=== PATIENT | male | born 1950 | race Caucasian/White ===

== ENCOUNTER → 2016-08-30 | Outpatient (CLI) | payer BC ==
[~2016-08-30] MED LIST: ATEN50TA8 PO; IBUP-1050 PO; OXYC-57 PO
--- NOTE | 2016-08-30 10:01 | DIAGNOSTIC IMAGING REPORT ---
RIGHT SHOULDER 3 VIEWS HISTORY: RIGHT SHOULDER PAIN Right COMPARISON: Right shoulder 08/03/2009. FINDINGS: No fractures within the right shoulder. The right clavicle is intact. Severe osteoarthritis within the glenohumeral joint with [id number] articulation, subchondral sclerosis, and a large osteophyte. This has progressed. A 1 cm well-corticated ossific density superior to the glenoid joint may be due to chronic rotator cuff injury or an intra-articular loose body. There is posterior subluxation of the humeral head in relation to the glenoid of approximately 1 cm. IMPRESSION: 1. No fractures within the right shoulder. 2. Progressive severe osteoarthritis of the glenohumeral joint. 3. Posterior subluxation of the humeral head in relation to the glenoid of approximately 1 cm. This is new from the prior study. Electronically signed by: Jono Burnett M.D. 08/30/2016 9:59 AM Dictated Date/Time: 08/30/2016 9:51 AM
== END | disposition home or self-care (01) ==
LOC: C.RDSM 09:12
PROVIDERS: ATTEND Internal Medicine
DX: M19.011 Primary osteoarthritis, right shoulder (principal); S43.021A Posterior subluxation of right humerus, initial encounter; X58.XXXA Exposure to other specified factors, initial encounter

== ENCOUNTER → 2016-10-25 | Day surgery (SDC) | payer BC ==
[2016-10-06 11:48] VITALS: BMI 32.0
--- NOTE | 2016-10-06 12:21 | PAT Medication Instructions ---
Service Date October 06, 2016. Current Home Medication List Atenolol (Tenormin), 50 MG PO QAM Ibuprofen (Advil), 600 MG PO PRN Medication Instructions For Your Scheduled Surgery Ibuprofen (Advil), 600 MG PO PRN (patient can check with surgeon for instructions) - Take the following medications the morning of surgery with a sip of water: Atenolol (Tenormin), 50 MG PO QAM Tylenol (if needed) - Take the following medications as scheduled the night before surgery: Tylenol (if needed) If you have any questions please call us at [phone] or [phone] ( Sarahi) or [phone]
[2016-10-06 13:44] LABS: BASO % 0.3 %; BASO ABS # 0.03 K/uL (0-0.2); COMPLETE YES; EOS % 0.8 %; HEMATOCRIT 41.9 % (42-52); IG% 0.2 %; LYMPH % 25.7 %; LYMPH ABS # 2.61 K/uL (1.2-3.4); MEAN CELL VOLUME 85.7 fL (80-100); MEAN CORPUSCULAR HEMOGLOBIN 29.4 pg (25-34); MEAN CORPUSCULAR HGB CONC 34.4 g/dl (32-36); MEAN PLATELET VOLUME 9.7 fL (7.4-10.4); MONO % 7.3 %; NEUT % 65.7 %; PLATELET COUNT 255 K/uL (130-400); RED BLOOD COUNT 4.89 M/uL (4.7-6.1); WHITE BLOOD COUNT 10.14 K/uL (4.8-10.8)
[2016-10-06 13:46] LABS: URINE APPEARANCE CLEAR (CLEAR); URINE BILIRUBIN NEG (NEG); URINE COLOR YELLOW; URINE NITRITE NEG (NEG); URINE SPECIFIC GRAVITY 1.009 (1.000-1.030); UROBILINOGEN NEG (NEG); ZZUR CULT IF INDIC CLEAN CATCH NO
[2016-10-06 13:48] LABS: MANUAL MICROSCOPIC REQUIRED? NO; REVIEW REQ? NO
[2016-10-06 13:52] LABS: PARTIAL THROMBOPLASTIN RATIO 1.1; PROTHROMBIN TIME (PATIENT) 10.3 SECONDS (9.0-12.0)
[2016-10-06 14:05] LABS: BUN/CREATININE RATIO 19.2 (10-20); CALCIUM 8.9 mg/dl (8.5-10.1); CREATININE 0.88 mg/dl (0.60-1.40); POTASSIUM 3.8 mmol/L (3.5-5.1)
--- NOTE | 2016-10-14 05:50 | HISTORY & PHYSICAL EXAMINATION ---
DATE OF ADMISSION: 11/01/2016 CHIEF COMPLAINT: Right shoulder pain. HISTORY OF PRESENT ILLNESS: This 66-year-old white male, presents to the office with complaints of right shoulder pain that has been ongoing for over 10 years. Pain has become worse over the last 6 months. He is now having difficulty with any sort of lifting. He has lost motion. He is no longer able to put his arms over his head. No recent trauma. Pain is associated with motion and is affecting his ADLs. He has tried conservative care including activity modification, physical therapy and joint injections without lasting relief. Right hand dominant. He elects to proceed with a right total shoulder arthroplasty in hopes of alleviating his pain. PAST MEDICAL HISTORY: Significant for hypertension as well as degenerative joint disease and obesity. PREVIOUS SURGERIES: Tonsillectomy in 1964. CURRENT MEDICATIONS: Atenolol 50 mg daily. ALLERGIES: NKDA. FAMILY HISTORY: Significant for prostate cancer and glaucoma. SOCIAL HISTORY: The patient is employed at the [employer]. No tobacco use, no ETOH use. . REVIEW OF SYSTEMS: Significant for the above stated conditions, otherwise unremarkable. PHYSICAL EXAMINATION: GENERAL: Well-developed and well-nourished middle aged white male, in no acute distress. Sitting on a chair, alert and oriented. SKIN: Warm and dry with good turgor. No rashes or lesions. No ecchymosis or erythema. HEENT: Normocephalic and atraumatic. Eyes: PERRLA, EOMI. Nares patent bilaterally without turbinate enlargement. Oropharynx without erythema or exudates. No lesions noted. Uvula midline. Oral mucosa moist. Fair dentition. Fillings are noted. HEART: RRR. No MGR. LUNGS: Clear to auscultation bilaterally. No crackles, rhonchi or wheezing. Good air movement. ABDOMEN: Obese. Bowel sounds present x4, soft and nontender. No organomegaly. No masses. MUSCULOSKELETAL: Right shoulder evaluation reveals no obvious asymmetry or deformity. There is crepitus palpable with motion. Forward flexion to around 120 degrees, abduction to around 90 degrees, behind the back reach to belt line. External rotation only about 15 degrees. He has focal discomfort with palpation over the glenohumeral joint. The pain extends into the pectoral muscles as well. Full elbow motion. NEUROLOGIC: Cranial nerves II through XII are intact. Gross sensation is intact across the right arm via soft touch. Peripheral pulses are 2+. DATA: Radiographic imaging previously obtained shows end-stage DJD of the right glenohumeral joint. He has a large goats schaffer deformity. Periarticular osteophytes and loss of joint space are noted. IMPRESSION: Right shoulder advanced degenerative joint disease. PLAN: Informed written consent was obtained to proceed with a right total shoulder arthroplasty. Postoperative prescription for Percocet will be provided at discharge from the hospital. I anticipate one night 23-hour observation stay. Postoperative physical therapy appointment was made. Preoperative lab work and EKG have been ordered. Medical clearance was requested from his PCP. ANA
[~2016-10-25] VITALS: Ht 177.8 cm; Wt 102.3 kg
[~2016-10-25] MED LIST changes: +BUPIVACAINE/EPINEPHRINE 0.25% 1:200,000 30 ML VIAL ONE; +CEFAZOLIN 2000 MG/60 ML D5W 60 ML IV SCH; +DEXAMETHASONE SOD INJ 4 MG/ML VIAL ONE; +FENTANYL CITRATE INJ 50 MCG/1 ML 2 ML VIAL ONE; +GLYCOPYRROLATE INJ 0.2 MG/ML VIAL ONE; +LACTATED RINGER'S 1000ML 1,000 ML IV SCH; +LACTATED RINGER'S 1000ML IV SCH; +LIDOCAINE HCL 2% 2 ML VIAL (20MG/ML) ONE; +MIDAZOLAM HCL 1 MG/ML 2ML VIAL ONE; +NEOSTIGMINE METHYLSULFATE 5 MG/5 ML SYR ONE; +PROPOFOL IV EMULSION 10 MG/ML 20 ML VIAL IV ONE; +ROCURONIUM BROMIDE 10 MG/ML 5 ML VIAL ONE; +TRANEXAMIC ACID INJ 1,000 MG in SODIUM CHLORIDE 0.9% 100ML 100 ML IV SCH
[2016-10-25 05:38] VITALS: BP 157/96; PULSE 58; TEMP 36.7; O2SAT 98; Ht 177.8 cm; Wt 102.3 kg
--- NOTE | 2016-10-25 06:28 | History & Physical Bridge Note ---
H&P Re-Evaluation Bridge Note: I have examined the patient, reviewed the History & Physical and in the interval since the performance of the History & Physical I have noted the following changes of clinical significance: denies any cardiac symptoms but has new ekg strip change.will need 12 lead ekg now prior to clearing.anesthesia evaluating as well..Ekg abnormal will need workup and case will be cancelled.
--- NOTE | 2016-10-30 13:03 | EDITING REQUIRED CODING QUERY ---
EKG changes CANCELLED PROCEDURE Please provide reason for the procedure being cancelled below: REASON PROCEDURE WAS CANCELLED: EKG changes Thank you for your assistance, Nancy Blandon - Drafter [employer]
== END | disposition home or self-care (01) ==
LOC: C.ACU 05:11
PROVIDERS: ATTEND Physical Medicine & Rehabilitation Sports Medicine
DX: M19.011 Primary osteoarthritis, right shoulder (principal); R94.31 Abnormal electrocardiogram [ECG] [EKG]; Z53.09 Procedure and treatment not carried out because of other contraindication; I10 Essential (primary) hypertension; E66.9 Obesity, unspecified; Z80.42 Family history of malignant neoplasm of prostate; Z83.511 Family history of glaucoma

== ENCOUNTER 2016-11-29 06:38 | Observation (INO) | payer BC ==
[2016-11-28 12:07] VITALS: BMI 32.0
--- NOTE | 2016-11-28 12:36 | History and Physical ---
History & Physical Date & Time of Service: Nov 28, 2016 at 12:28 Chief Complaint: Right Shoulder Degenerative Joint Disease Primary Care Physician: Basil Horton M.D. History of Present Illness Source: patient This 66-year-old white male presents with complaints of right shoulder pain that has been ongoing for over 10 years. Pain is become worse over the last 6- 9 months. He is now having difficulty with any sort of lifting. He has lost motion. He is no longer able to put his arms over his head. No recent trauma. Pain is associated with motion and is affecting his ADLs. He has tried conservative care including activity modification, physical therapy, and joint injections without lasting relief. Right-hand dominant. He elected to proceed with a right total shoulder arthroplasty in hopes of alleviating his pain. Past Medical/Surgical History Past medical history: Significant for hypertension, obesity, and degenerative joint disease. Previous surgeries: Tonsillectomy 1964. Family History Significant for prostate cancer and glaucoma Social History Smoking Status: Former Smoker Smokeless Tobacco Use: No Alcohol Use: none Drug Use: none Marital Status: Housing status: lives with family Occupational Status: employed (at the [employer] at [employer]) Multi-Drug Resistant Organisms History of MDRO: No Allergies Coded Allergies: No Known Allergies (Unverified , 11/28/16) Home Medications Scheduled Atenolol (Tenormin), 50 MG PO QAM Ibuprofen (Advil), 600 MG PO PRN Physical Exam General Appearance: WD/WN, no apparent distress (sitting in a chair) Head: normocephalic, atraumatic Eyes: PERRL, EOMI, sclerae normal ENT: hearing grossly normal, pharynx normal (fair dentition, fillings are noted. Uvula midline) Neck: supple, no adenopathy Respiratory/Chest: chest non-tender, lungs clear, normal breath sounds (no crackles, rhonchi, or wheezing. Good air movement), no respiratory distress Cardiovascular: regular rate, rhythm, no edema, no gallop, no murmur (no rubs) , normal peripheral pulses Abdomen/GI: normal bowel sounds, non tender, soft Extremities/Musculoskelatal: normal inspection, + pertinent finding (he has crepitus palpable with motion. For flexion to around 120, abduction to around 90, and lack reached a belt line. External rotation of only 15 with his elbow at the side. There is focal pain with palpation over the glenohumeral joint. Pain extends into the pectoral muscles well. Elbow exam is benign.) Neurologic/Psych: engine boss II-XII nml as tested, alert, oriented x 3 Skin: normal color, warm/dry, no rash (no ecchymosis, no erythema.) Diagnostics Diagnostic Radiology Radiographic imaging previously obtained shows end-stage DJD of the right glenohumeral joint. He has a large goat's schaffer deformity. Periarticular osteophytes and loss of joint space are noted. Impression Assessment and Plan Impression: Right shoulder advanced degenerative joint disease. Plan: Informed written consent was obtained to proceed with a right total shoulder arthroplasty. Postoperative prescription for Percocet will be provided at discharge from the hospital. I anticipate a 1 night stay. Preoperative lab work and EKG have been ordered. Medical clearance has been obtained from his PCP. Advanced Directives Existing Living Will: No Existing Power of Pari Mutuel Ticket Cashier: No
[~2016-11-29] VITALS: Ht 177.8 cm; Wt 102.3 kg
[2016-11-29] VITALS (9 sets, daily range): BP systolic 102–151; BP diastolic 52–84; PULSE 54–70; TEMP 36.4–36.9; O2SAT 93–98; Ht 177.8 cm; Wt 102.3 kg
[~2016-11-29 06:38] MED LIST changes: -BUPIVACAINE/EPINEPHRINE 0.25% 1:200,000 30 ML VIAL ONE; -DEXAMETHASONE SOD INJ 4 MG/ML VIAL ONE; -FENTANYL CITRATE INJ 50 MCG/1 ML 2 ML VIAL ONE; -GLYCOPYRROLATE INJ 0.2 MG/ML VIAL ONE; -LACTATED RINGER'S 1000ML 1,000 ML IV SCH; +LACTATED RINGER'S 1000ML IV ONE; -LIDOCAINE HCL 2% 2 ML VIAL (20MG/ML) ONE; -MIDAZOLAM HCL 1 MG/ML 2ML VIAL ONE; -NEOSTIGMINE METHYLSULFATE 5 MG/5 ML SYR ONE; -OXYC-57 PO; -PROPOFOL IV EMULSION 10 MG/ML 20 ML VIAL IV ONE; -ROCURONIUM BROMIDE 10 MG/ML 5 ML VIAL ONE; +ROPIVACAINE 0.5% 5 MG/ML 30 ML VIAL ONE
--- NOTE | 2016-11-29 06:42 | History & Physical Bridge Note ---
H&P Re-Evaluation Bridge Note: I have examined the patient, reviewed the History & Physical and in the interval since the performance of the History & Physical I have noted the following changes of clinical significance: addressed consent and questions..No changes noted
[2016-11-29] MEDS ORDERED: MIDAZOLAM HCL 1 MG/ML 2ML VIAL ONE ×2 (07:53)
[2016-11-29] MEDS ORDERED: FENTANYL CITRATE INJ 50 MCG/1 ML 2 ML VIAL ONE ×2 (07:53→10:44)
[2016-11-29] MEDS ORDERED: BACITRACIN 50000 UNIT VIAL ONE (08:17)
[2016-11-29] MEDS ORDERED: THROMBIN FOR SOLN 20000 UNIT KIT ONE (08:17)
[2016-11-29] MEDS ORDERED: ROCURONIUM BROMIDE 10 MG/ML 5 ML VIAL ONE (09:06)
[2016-11-29] MEDS ORDERED: LIDOCAINE HCL 2% 2 ML VIAL (20MG/ML) ONE (09:06)
[2016-11-29] MEDS ORDERED: DEXAMETHASONE SOD INJ 4 MG/ML VIAL ONE (09:06)
[2016-11-29] MEDS ORDERED: PROPOFOL IV EMULSION 10 MG/ML 20 ML VIAL IV ONE (09:06)
[2016-11-29] MEDS ORDERED: ONDANSETRON INJ 2 MG/ML 2 ML VIAL ONE (09:06)
[2016-11-29] MEDS ORDERED: ATROPINE SULFATE 0.1 MG/ML 5ML SYR IV PRN (09:15)
[2016-11-29] MEDS ORDERED: HYDROmorphone INJ 2 MG/ML SYR/VIAL IV PRN (09:15)
[2016-11-29] MEDS ORDERED: ONDANSETRON INJ 2 MG/ML 2 ML VIAL IV PRN ×2 (09:15→11:00)
[2016-11-29] MEDS ORDERED: KETOROLAC TROMETHAMINE 30 MG/ML VIAL IV. PRN (09:15)
--- NOTE | 2016-11-29 10:49 | [facility] Post Operative Brief Note ---
Immediate Operative Summary Operative Date Nov 29, 2016. Pre-Operative Diagnosis Right Shoulder Degenerative Joint Disease Post-Operative Diagnosis Right Shoulder Degenerative Joint Disease Procedure(s) Performed Right Total Shoulder Arthroplasty--Cemented Surgeon Dr. Asher Cargo Trimmer Surgeon(s) NORBERT Villalobos Estimated Blood Loss 120 ml Findings severe djd/intact rotator cuff Fluids (cc crystalloids) 1400cc Specimens A. Portion of Right Humeral Head Drains none Anesthesia GET/block Complication(s) None Disposition Recovery Room / PACU
[2016-11-29] MEDS ORDERED: MAGNESIUM HYDROXIDE SUSP 30 ML UDC PO PRN (11:00)
[2016-11-29] MEDS ORDERED: MoRPHine SULFATE 2 MG/ML CARP IV PRN (11:00)
[2016-11-29] MEDS ORDERED: ACETAMINOPHEN 325 MG TAB PO PRN (11:00)
[2016-11-29] MEDS ORDERED: METOCLOPRAMIDE HCL INJ 5 MG/ML 2 ML VIAL IV PRN (11:00)
[2016-11-29] MEDS ORDERED: ALUMINUM/MAGNESIUM SUSP 30 ML UDC PO PRN (11:00)
--- NOTE | 2016-11-29 11:08 | [facility] Operative Report ---
Operative Report Date of Service Nov 29, 2016. Operative Report Preoperative diagnosis severe osteoarthritis/arthrofibrosis right shoulder Postoperative diagnosis same Surgeon: Lb Asst.: Elva, no resident or fellow available Perioperative situation: Medically cleared male with intractable shoulder pain with physical exam x-ray revealing end-stage osteoarthritis with intact rotator cuff. Cardiac disease issue cleared. Options discussed in detail including risks and benefits axillary nerve palsy, fracture, instability, infection, DVT. Operation: After the patient was properly identified, b consent verified ,2 g of Ancef confirmed as being given the patient was placed in the beachchair position and the right upper extremity prepped and draped in usual routine fashion. Care was taken to protect all prominent sites. A deltopectoral incision was then made. The cephalic vein was preserved and retracted with the deltoid. The clavipectoral fascia was incised. Deep retractors were placed. The subscapularis was then subperiosteally dissected off the lesser tuberosity. Capsule was then excised. The head was then dislocated. Care was taken to the dissector on the inferior neck to protect the axillary nerve which was palpated but not explored. Humeral head was then resected. Rotator cuff was intact. The glenoid was then exposed and remaining soft tissue removed. Central pin was then placed. Reaming was carried out. All osteophytes removed. The lesly hole was then made for a keeled stem. Once this was completed it was irrigated and thrombin placed irrigated and then a permanent keeled stem cemented into position. After 14 minutes the area was explored and was no excess cement. The wound was irrigated. Humerus was then delivered in the wound care taken to protect all soft tissue structures and canal reamed up to a 12 broach aligned at 30 of retroversion and then the 12 mm broach impacted. Trial reduction was carried out with an 18 and a 21 head and a 21 offer more stability posteriorly. The remaining trial implants were then removed permanent head and stem seated sutures placed through the less tuberosity around the stem for the rotator cuff. Shoulder was then reduced it was nice and stable. The rotator cuff and subscapularis repair was then completed with #5 FiberWire and #1 Vicryl with an excellent repair. Shoulder could be placed 30 into forward flexion abduction and external rotation was from the belly to about 10. There was no undue tension on the repair. The wound was then irrigated. Was then closed using #1 Vicryl for the deltopectoral fascia 2-0 plain for the subcutaneous tissue and stainless still clips for skin. The wound was then appropriately dressed. Patient was then transferred to recovery in satisfactory missionary tolerated the procedure well. Summary of implants: Size 52 keeled glenoid cemented with Palacos G cement one batch 12 global advantage stem porous-coated noncemented 5221 head. Estimated blood loss was 125 mL crystalloid 1400 mL. Dictated not read. Carbon copy to Dr. Asher. I attest to the content of the Intraoperative Record and any orders documented therein. Any exceptions are noted below.
--- NOTE | 2016-11-29 11:25 | DIAGNOSTIC IMAGING REPORT ---
RIGHT SHOULDER 1 VIEW CLINICAL HISTORY: s/p Right shoulder TSA Right shoulder arthroplasty COMPARISON: 05/07/2006 DISCUSSION: Total right shoulder arthroplasty. Good contact between metallic prosthetic and underlying bone. Postoperative soft tissue changes are present. IMPRESSION: Total right shoulder arthroplasty good position Electronically signed by: Tyrese Padilla M.D. 11/29/2016 11:24 AM Dictated Date/Time: 11/29/2016 11:23 AM
[2016-11-29] MEDS ORDERED: IV FLUIDS COMPLETED PRN (11:30)
[2016-11-29] MEDS ORDERED: MoRPHine SULFATE 4 MG/ML 1 ML CARP\\VIAL IV PRN (12:45)
--- NOTE | 2016-11-29 12:58 | Anesthesiology Progress Note ---
Anesthesia Post Op Note Date & Time Nov 29, 2016 at 12:57 Vital Signs Pain Intensity: 3.0 Vital Signs Past 12 Hours Date Time Temp Pulse Resp B/P (MAP) Pulse Ox O2 Delivery O2 Flow Rate FiO2 11/29/16 12:46 56 18 124/74 (91) 11/29/16 12:13 36.4 56 18 122/69 (86) 95 Nasal Cannula 2.0 11/29/16 11:50 93 Nasal Cannula 2.0 11/29/16 11:45 36.6 54 18 121/62 (81) 93 Nasal Cannula 2.0 11/29/16 11:45 Nasal Cannula 2.0 11/29/16 11:30 56 18 133/74 96 Nasal Cannula 2 11/29/16 11:20 36.1 56 15 141/80 96 Nasal Cannula 2 11/29/16 11:10 58 18 145/85 96 Oxymask 6 11/29/16 11:00 58 13 157/88 99 Oxymask 8 11/29/16 10:52 36.1 64 16 169/102 96 Oxymask 10 11/29/16 07:00 36.9 58 18 151/84 98 Room Air Notes Mental Status: alert / awake / arousable, participated in evaluation Pt Amnestic to Procedure: Yes Nausea / Vomiting: adequately controlled Pain: adequately controlled Airway Patency, RR, SpO2: stable & adequate BP & HR: stable & adequate Hydration State: stable & adequate Anesthetic Complications: no major complications apparent
[2016-11-29] MEDS ORDERED: D5W AND 1/2NSS + 20MEQ KCL 1,000 ML IV SCH (13:00)
--- NOTE | 2016-11-29 13:57 | Orthopedic Progress Note ---
Orthopedic Progress Note Date of Service Nov 29, 2016. Subjective Post OP Day: Reports: feeling well, Denies: complaints, chest pain, SOB, nausea / vomiting, light headedness, calf pain, pain controlled w PO medications, using INSPECTOR TOOL Objective calves soft nontender, N/V intact (limited by block) Date Time Temp Pulse Resp B/P (MAP) Pulse Ox O2 Delivery O2 Flow Rate FiO2 11/29/16 12:46 56 18 124/74 (91) 11/29/16 12:13 36.4 56 18 122/69 (86) 95 Nasal Cannula 2.0 11/29/16 11:50 93 Nasal Cannula 2.0 11/29/16 11:45 36.6 54 18 121/62 (81) 93 Nasal Cannula 2.0 11/29/16 11:45 Nasal Cannula 2.0 11/29/16 11:30 56 18 133/74 96 Nasal Cannula 2 11/29/16 11:20 36.1 56 15 141/80 96 Nasal Cannula 2 11/29/16 11:10 58 18 145/85 96 Oxymask 6 11/29/16 11:00 58 13 157/88 99 Oxymask 8 11/29/16 10:52 36.1 64 16 169/102 96 Oxymask 10 11/29/16 07:00 36.9 58 18 151/84 98 Room Air Additional Notes: dressing clean and dry/moving about well Assessment & Plan Assessment: continue care pathway/discharge in am Discharge Planning Discharge Planning: home
--- NOTE | 2016-11-29 14:28 | [facility] Operative Report ---
Operative Report Operative Date Nov 29, 2016. Pre-Operative Diagnosis Right Shoulder Degenerative Joint Disease Post-Operative Diagnosis Right Shoulder Degenerative Joint Disease Procedure(s) Performed Right Total Shoulder Arthroplasty--Cemented Surgeon Dr. Asher Solar Pv Installer Surgeon(s) NORBERT Villalobos Estimated Blood Loss 120 ml Findings Right shoulder DJD Fluids 1400cc Specimens A. Portion of Right Humeral Head Drains none Anesthesia GET/block Complication(s) None Disposition Recovery Room / PACU Indications This 66-year-old white male presented to the office with complaints of intractable right shoulder pain. He had tried conservative care measures including physical therapy and injection therapy without lasting relief. He elected to proceed with surgical intervention after being educated about potential risks and outcomes. Preoperative x-rays have been obtained. Description of Procedure Patient was administered a regional block and then taken to the operating room where he was given general anesthesia. He was prepped and draped in usual sterile fashion. Please see Dr. Asher's operative report for specifics of the procedure. I was present for the entire case from initial patient positioning through final wound closure. Assistance was provided in tissue retraction, hemostasis, trial implant placement, final implant placement, and final wound closure. She was taken to the recovery room in satisfactory condition. I attest to the content of the Intraoperative Record and any orders documented therein. Any exceptions are noted below.
[2016-11-29] MEDS ORDERED: OXYC-57 PO (15:52)
[2016-11-29] MEDS: CEFAZOLIN IV 2,000 MG in DEXTROSE 5% 50ML 50 ML IV SCH ×2 (16:00→23:56)
[2016-11-29] MEDS: FERROUS GLUCONATE 324 MG TAB PO SCH (17:51)
[2016-11-29] MEDS: KETOROLAC TROMETHAMINE 30 MG/ML VIAL IV. SCH ×2 (17:52→23:59)
[2016-11-29] MEDS ORDERED: NURSING VERBAL MED ORDER ONE (20:15)
[2016-11-29] MEDS: DOCUSATE SODIUM 100 MG CAP PO SCH (21:06)
[2016-11-29] MEDS: ACETAMINOPHEN IV 1,000 MG in EMPTY BAG 0 ML IV SCH (21:46)
[2016-11-30] MEDS: OXYCODONE HCL IR 5 MG TAB (IMMEDIATE RELEASE) PO PRN ×2 (00:03→07:08)
[2016-11-30 03:11] VITALS: BP 110/53; PULSE 55; TEMP 36.6; O2SAT 96
[2016-11-30] MEDS: ACETAMINOPHEN IV 1,000 MG in EMPTY BAG 0 ML IV SCH (06:11)
[2016-11-30] MEDS: KETOROLAC TROMETHAMINE 30 MG/ML VIAL IV. SCH (06:11)
[2016-11-30 06:16] LABS: HEMATOCRIT 36.1 % (42-52); MEAN CELL VOLUME 87.2 fL (80-100); MEAN CORPUSCULAR HEMOGLOBIN 29.5 pg (25-34); MEAN CORPUSCULAR HGB CONC 33.8 g/dl (32-36); MEAN PLATELET VOLUME 9.8 fL (7.4-10.4); PLATELET COUNT 235 K/uL (130-400); RED BLOOD COUNT 4.14 M/uL (4.7-6.1); WHITE BLOOD COUNT 13.67 K/uL (4.8-10.8)
--- NOTE | 2016-11-30 06:44 | Progress Note ---
Progress Note Date of Service Nov 30, 2016. Progress Note Postop day #1 is feeling well. Denies chest pain shortness breath fever chills nausea vomiting or headache. Abdomen soft nontender. Neurovascular check upper extremity including axillary nerve intact. Detailed median radial and ulnar nerve assessment at the hand and wrist is normal. Block is completely worn off. Dressing is changed no active bleeding imaging looks clean. Assessment doing well Plan at this point comes to discharge today outpatient PT to begin today. Range of motion 30 for flexion 30 abduction rotation from belly to 5 of external rotation. Follow up in 2 weeks for staple removal.
--- NOTE | 2016-11-30 06:46 | Discharge Summary ---
Orthopedic Discharge Summary Admission Date/Reason Nov 29, 2016 at 06:45 Right Shoulder Degenerative Joint Disease. Discharge Date/Disposition Nov 30, 2016 Home Diagnosis Principal Diagnosis: Osteoarthritis right shoulder Procedure(s) Performed Cemented glenoid noncemented humeral stem total shoulder arthroplasty right upper extremity Vaccinations None Consultations None Medication Reconciliation New Medications: Oxycodone/Acetaminophen 5MG/325MG (Percocet 5MG/325MG) Tab 1-2 TABLETS PO Q4H PRN for Pain, #30 TAB Continued Medications: Atenolol (Tenormin) 50 Mg Tab 50 MG PO QAM, TAB Ibuprofen (Advil) 200 Mg Tab 600 MG PO PRN, TAB Admission Physical Exam As per Admitting History & Physical. Hospital Course Hospital course has been uneventful at some minor drainage at this point in time there is no active bleeding neurovascular check is normal. Discharge Instructions Please refer to the electronic Patient Visit Report (Discharge Instructions) for additional information.
[2016-11-30 06:51] LABS: BUN/CREATININE RATIO 17.7 (10-20); CALCIUM 8.2 mg/dl (8.5-10.1); POTASSIUM 3.7 mmol/L (3.5-5.1)
[2016-11-30] MEDS: DOCUSATE SODIUM 100 MG CAP PO SCH (07:04)
[2016-11-30] MEDS: FERROUS GLUCONATE 324 MG TAB PO SCH (07:04)
[2016-11-30 07:11] VITALS: BP 110/53; PULSE 55; TEMP 36.6; O2SAT 96
[2016-11-30 07:38] VITALS: BP 122/68; PULSE 62; TEMP 36.4; O2SAT 97
[2016-11-30 08:00] VITALS: O2SAT 97
--- NOTE | 2016-11-30 08:47 | Discharge Instructions ---
Discharge Instructions Date of Service Nov 29, 2016. Admission Reason for Admission: Right Shoulder Degenerative Joint Disease Discharge Discharge Diagnosis / Problem: Right shoulder s/p total shoulder replacement Discharge Goals Goal(s): Decrease discomfort, Improve function, Increase independence Activity Recommendations Activity Limitations: as noted below Lifting Limitations: gradually increase as tolerated Exercise/Sports Limitations: until after follow-up appointment Shower/Bathe: keep incision dry Driving or Machine Use: No driving until cleared by Dr. Asher . Instructions / Follow-Up Instructions / Follow-Up The following are instructions to follow after "Shoulder Surgery" ACTIVITY RECOMMENDATIONS: * Minimize activity after surgery. * No excessive walking, jogging, sports or laboring. * Return to activity is individualized depending on the patient and type of surgery. * Driving is not permitted until at least your first post operative visit. Please ask your doctor when it is safe to resume driving. * Expect increased discomfort with increased activity. Continue to ice the shoulder as needed. SCHOOL/WORK RECOMMENDATIONS: * You may return to sedentary work or school when you are feeling more comfortable. This is usually 3-7 days after surgery. MEDICATIONS: * You will have a prescription for pain medication after surgery. * Use the pain medication for severe pain and an anti-inflammatory for less severe pain. Once the pain medication has run out, try to use the anti-inflammatory medication. If this is not effective, contact the office for assistance. * The pain medication may cause nausea, constipation and drowsiness. You should see how they affect you before driving or similar activity. * The anti-inflammatory medication may cause stomach upset and bleeding. If this occurs let your doctor know immediately . * Take a stool softener like Colace or a laxative like Senokot to prevent constipation. DIET: * Resume previous diet. SPECIAL CARE: ICE: You have the option of gel packs or ice bags. * If you do not have an ice cooler, you will need to use ice bags or gel packs. Do not apply ice directly to the skin. Use a thin dressing or serenity shirt between the skin and ice bag. Apply ice for 20-30 minutes and repeat every 2-4 hours. This is especially important for the first 7-10 days after surgery. Once the pain improves, use ice as needed. ELEVATION: * You may be more comfortable sleeping in an upright position. Use the sling to elevate your arm. DRESSING: * Your dressing will be changed at your first therapy appointment after surgery. Band-aids, tape strips or gauze may be applied. You may then change your dressing daily. * Reapply dressing followed by the the sling. * Always wash your hands prior to touching the incision area. * Once the stitches are removed, you may leave the wound open to air or cover with gauze. * Expect some bloody drainage for the first few days after surgery. * Leave the tape strips, if present, in place for 5-7 days. * Band-aids and gauze may be changed daily. * There may be a gauze pad in your armpit area. This can be changed daily or replaced by a dry washcloth. SLING/BRACE: * You will need to use a sling or brace after surgery. The length of time the sling is used is dependent upon the type of surgery performed. Please check with your doctor prior to discontinuing the sling. BATHING: * You may shower or sponge-bathe immediately after surgery. The post operative shoulder dressing is not water-tight. Be reasonably careful not to get the gauze or incision wet. * Once the tho have been removed after surgery, you may shower and get the incision wet. * Wash with regular soap and water. * Do not bathe (submerge the incision), soak, swim or use a hot tub until the incision is completely healed over with normal skin and the doctor has given the OK to proceed. * There is no need to apply any ointments, powders or salves to your incision. * Do not apply alcohol or hydrogen peroxide directly to the incision. * Diluted peroxide (50:50 mixture with sterile saline) may be used to clean dried blood from around the incision area. THERAPY: * You will begin therapy after surgery. * Organized therapy with the therapist is important for the first 2-4 months after surgery depending on the type of procedure. During that time you will attend therapy 1-3 times per week. * You will also need to do daily exercises for range of motion and strength as instructed. * Please check with your doctor regarding appropriate motion restrictions. FOLLOW UP VISIT: * If not already scheduled, please call the office at to schedule a follow-up appointment for 10 days after surgery and monthly thereafter. Current Hospital Diet Patient's current hospital diet: Regular Diet Discharge Diet Recommended Diet: Regular Diet Procedures Procedures Performed: Right Total Shoulder Arthroplasty--Cemented Pending Studies Studies pending at discharge: no Medical Emergencies . Who to Call and When: Medical Emergencies: If at any time you feel your situation is an emergency, please call 911 immediately. . Non-Emergent Contact Non-Emergency issues call your: Primary Care Provider, Surgeon Call Non-Emergent contact if: temperature is above 101, wound has increased redness, wound has increased pain, you have any medication questions . "Provider Documentation" section prepared by Carlo Stevenson PA-C. . VTE Core Measure Inpt VTE Proph given/why not?: Nathaly Henderson, [facility] [place] Drug Monitoring Program Search Results: no issues identified
[2016-11-30] MEDS ORDERED: PANTOprazole SOD 40 MG TAB PO SCH (09:00)
[2016-11-30] MEDS ORDERED: MULTIVITAMIN TAB PO SCH (09:00)
== END 2016-11-30 09:23 | disposition home or self-care (01) ==
LOC: C.ACU 06:38 → C.3E 06:45 → ENRESERV 11:26
PROVIDERS: ADMIT Physical Medicine & Rehabilitation Sports Medicine; ATTEND Physical Medicine & Rehabilitation Sports Medicine
DX: M19.011 Primary osteoarthritis, right shoulder (principal); I10 Essential (primary) hypertension; E66.9 Obesity, unspecified; Z87.891 Personal history of nicotine dependence; Z79.899 Other long term (current) drug therapy

== ENCOUNTER → 2017-01-29 | Outpatient (CLI) | payer BC ==
[~2017-01-29] MED LIST changes: -CEFAZOLIN 2000 MG/60 ML D5W 60 ML IV SCH; -LACTATED RINGER'S 1000ML IV ONE; -LACTATED RINGER'S 1000ML IV SCH; +OXYC-57 PO; -ROPIVACAINE 0.5% 5 MG/ML 30 ML VIAL ONE; -TRANEXAMIC ACID INJ 1,000 MG in SODIUM CHLORIDE 0.9% 100ML 100 ML IV SCH
== END | disposition home or self-care (01) ==
LOC: C.RDSM 15:50
PROVIDERS: ATTEND Physical Medicine & Rehabilitation Sports Medicine
DX: M13.811 Other specified arthritis, right shoulder (principal)